=== PATIENT | male | born 1995 | race Caucasian/White ===

== ENCOUNTER 2017-10-07 15:21 | Emergency (ER) | payer BC, OTHER ==
[~2017-10-07] VITALS: Ht 177.8 cm; Wt 60.3 kg
--- NOTE | 2017-10-07 15:48 | NUR ---
Patient discharged to home in stable conditon. Written and verbal after care instructions given to patient. Patient verbalizes understanding of instructions.
== END 2017-10-07 15:49 | disposition home or self-care (01) ==
LOC: ER 15:21
DX: Z00.8 Encounter for other general examination (principal)
CPT/HCPCS: 99281; A4663